=== PATIENT | male | born 1990 | race American Indian/Alaskan Native ===

== ENCOUNTER 2018-09-22 00:37 | Emergency (ER) | payer SELFPAY ==
[2018-09-22] MEDS ORDERED: ULTRAM PO ONE (03:30)
[2018-09-22 03:52] VITALS: BP 126/73
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
== END 2018-09-22 04:47 | disposition home or self-care (01) ==
LOC: ED 00:37
DX: S39.012A Strain of muscle, fascia and tendon of lower back, initial encounter (principal); V89.2XXA Person injured in unspecified motor-vehicle accident, traffic, initial encounter; Y93.89 Activity, other specified; Y92.410 Unspecified street and highway as the place of occurrence of the external cause; Y99.8 Other external cause status
CPT/HCPCS: 72100